=== PATIENT | female | born 1995 | race African-American/Black ===

== ENCOUNTER 2016-08-22 03:08 | Emergency (ER) | payer OTHER ==
[~2016-08-22 03:08] MED LIST: BACTRIM DS TAB1 EACH PO; IBUPROFEN800 M1 PO; KEFLEX500 M1 PO; PERCOCET 5-3251 EACH PO; PRENATAL TABLE1 EAC2 PO
[2016-08-22 03:15] VITALS: BP 112/66
[2016-08-22] MEDS ORDERED: DICLOFENAC SODI75 M2 PO (03:48)
[2016-08-22] MEDS ORDERED: ZITHROMAX250 M2 PO (03:48)
--- NOTE | 2016-08-22 03:49 | ED HEADACHE COMPLAINT ---
History of Present Illness General Chief Complaint: Eye Problems Stated Complaint: MAI,BOTH EYES PAIN Source: patient, family Exam Limitations: no limitations Vital Signs & Intake/Output Vital Signs & Intake/Output Vital Signs Date Time Temp Pulse Resp B/P B/P Pulse O2 O2 Flow FiO2 Mean Ox Delivery Rate 08/22 318 98 Room Air 08/22 314 98.2 98 18 112/66 97 Room Air Allergies Coded Allergies: NO KNOWN ALLERGIES (10/12/15) Reconcile Medications No Known Home Medications Triage Note: PT TO TRIAGE FROM HOME C/O HEADACHE AROUND EYES SINCE YESTERDAY. DENIES BLURRED VISION. REPORTS SCRATCHY THROAT AND COLD SWEATS LAST NIGHT BUT THEY WENT AWAY. AFEBRILE IN TRIAGE. Triage Nurses Notes Reviewed? yes : No Patient currently breastfeeds: No HPI: Patient presents for evaluation of a headache and bilateral eye pain that began about 6:00 on Sunday evening. The pains got worse during the course of the evening. The pain is described as a moderate intensity constant pounding pain that tracks down along the sides of the face and across the cheek bones. There has been no associated fever but the patient has had nasal congestion and rhinorrhea and a mild sore throat. There are been no associated rashes. She tried 2 Aleve tablets without relief. In addition to the above the patient is also experiencing diffuse abdominal cramps with an episode of vomiting earlier today (the symptoms seem to have resolved the patient is feeling only a little nauseous and is currently). Patient also states that her teeth hurt earlier today but that too has resolved. Past History Travel History Traveled to [place] past 21 day No Medical History Any Pertinent Medical History? see below for history Neurological: NONE EENT: NONE Cardiovascular: NONE Respiratory: NONE Gastrointestinal: NONE Hepatic: NONE Renal: NONE Musculoskeletal: NONE Psychiatric: NONE Endocrine: NONE Blood Disorders: NONE Cancer(s): NONE Surgical History Surgical History: , N Psychosocial History What is your primary language Faroese Tobacco Use: Never used ETOH Use: denies use Family History Hx Contributory? No Review of Systems Review of Systems Constitutional: Reports: no symptoms. Eyes: Reports: see HPI. Ears, Nose, Throat, Mouth: Reports: see HPI. Respiratory: Reports: no symptoms. Cardiovascular: Reports: no symptoms. Gastrointestinal/Abdominal: Reports: no symptoms. Genitourinary: Reports: no symptoms. Musculoskeletal: Reports: no symptoms. Skin: Reports: no symptoms. Neurological/Psychological: Reports: headache. Hematologic/Endocrine: Reports: no symptoms. Endocrine: Reports: no symptoms. Immunologic/Allergic: Reports: no symptoms. All Other Systems: Reviewed and Negative Physical Exam Physical Exam Cranial Nerves: see below Comments: Gen.: Well-nourished, well-developed, no acute respiratory distress. Head: Normocephalic, atraumatic. Eyes: Normal inspection bilaterally, PERRLA, EOMI Ears: Normal inspection bilaterally Nose: Normal inspection Throat/mouth : Moist mucosa Face: Tenderness to percussion over the frontal and maxillary sinuses Neck: Supple, full range of motion, no goiter Heart: Regular rate and rhythm, no murmurs rubs or gallops Lungs: Clear to auscultation bilaterally with normal air entry Chest: Nontender Back: Normal range of motion Abdomen: Soft, nontender, nondistended, normal bowel sounds Extremities: Normal range of motion grossly, equal radial pulses, no cyanosis clubbing or edema Neurologic: Cranial nerves grossly intact, speech is clear Skin: warm and dry Psychiatric: Calm, cooperative, no apparent delusions or hallucinations Core Measures Severe Sepsis Present: No Septic Shock Present: No Progress Differential Diagnosis: migraine MAI, musculoskeletal pain, sinusitis, TMJ syndrome Plan of Care: [id number] antihistamine decongestant combination, anti-inflammatory, fallback antibiotic prescription Departure Departure Disposition: HOME OR SELF CARE Condition: Stable Clinical Impression Primary Impression: Sinus headache Referrals: GI SALAZAR,ZAK Andrade (PCP/Family) Additional Instructions: [id number] antihistamine decongestant combination as discussed. Diclofenac as needed for pain. If symptoms do not resolve over the next 7-10 days then begin the azithromycin prescription. If symptoms do not resolve with the azithromycin prescription and follow-up with your primary care physician for reevaluation or referral to an ear nose and throat doctor. Return to emergency department immediately if any concerns or sudden worsening. Thank you for choosing the [facility] for your care. It was a pleasure to serve you today. Lalo Perez M.D. [facility] Departure Forms: Customer Survey General Discharge Information Prescriptions: Current Visit Scripts Azithromycin (Zithromax) 1 DP PO AD #6 TAB 2 the first day followed by 1 for days 2-5 Diclofenac Sodium 1 TAB PO BID PRN PAIN #14 TAB
== END 2016-08-22 03:54 ==
LOC: ERH 03:08
DX: R51 Headache (principal)